=== PATIENT | female | born 1985 | race Two or more races ===

== ENCOUNTER 2017-12-31 04:17 | Emergency (ER) | payer OTHER ==
[~2017-12-31] VITALS: Ht 154.9 cm; Wt 63.5 kg
[~2017-12-31 04:17] MED LIST: FER325T OR; PRENATAL VITAMIN
[2017-12-31 04:42] VITALS: BP 146/96
== END 2017-12-31 06:35 | disposition left against medical advice (07) ==
LOC: ER 04:17
DX: R10.84 Generalized abdominal pain (principal); R11.2 Nausea with vomiting, unspecified; Z53.21 Procedure and treatment not carried out due to patient leaving prior to being seen by health care provider